=== PATIENT | male | born 1975 | race Caucasian/White ===

== ENCOUNTER 2017-09-18 19:45 | Emergency (ER) | payer SELFPAY ==
[~2017-09-18] VITALS: Ht 170.2 cm; Wt 77.3 kg
[2017-09-18] MEDS ORDERED: LISI-662 PO (19:56)
[2017-09-18] MEDS ORDERED: METF500T6 PO (19:56)
[2017-09-18 20:03] LABS: GLUCOSE,POINT OF CARE 194 MG/DL (70-110)
[2017-09-18 21:05] VITALS: BP 125/69
== END 2017-09-18 21:05 | disposition home or self-care (01) ==
LOC: EMS 19:46
DX: S06.0X9A Concussion with loss of consciousness of unspecified duration, initial encounter (principal); I10 Essential (primary) hypertension; E11.9 Type 2 diabetes mellitus without complications; V49.40XA Driver injured in collision with unspecified motor vehicles in traffic accident, initial encounter; Y93.89 Activity, other specified; Y92.89 Other specified places as the place of occurrence of the external cause; Y99.8 Other external cause status
CPT/HCPCS: 99283